=== PATIENT | female | born 1945 | race Caucasian/White ===

== ENCOUNTER 2022-02-27 12:10 | Inpatient (IN) | payer OTHER ==
[2022-02-26 20:20] VITALS: BP 131/56
[~2022-02-27] VITALS: Ht 160 cm; Wt 47.7 kg
--- NOTE | 2022-02-27 12:31 | NUR ---
BIB RA FROM HOME C/O HEADACHE/DIZZINESS SINCE SATURDAY S/P FALLING DOWN. PT REPORTS FELT DIZZY AND WEAK PRIOR TO FALLING AND EXPERIENCED A BLACKOUT. REPORTS "I NOTICE HAVING TROUBLE MAKING MY WORDS NOW." R KNEE ABRASION. AAOX4, BREATHING EVEN AND UNLABORED, LOWER FACIAL WEAKNESS. STONE BELT SANDER STRENGTH 5/5. NO ARM OR LEG DRIFT. ON MONITOR.
[2022-02-27 14:36] LABS: BASOPHILS # (AUTO) 0.1 K/uL (0.0-0.2); BASOPHILS % (AUTO) 1.2 % (0.0-2.0); EOSINOPHILS % (AUTO) 1.5 % (0.0-6.0); HEMATOCRIT 37 % (33-45); HEMOGLOBIN 12.1 g/dL (11.5-14.8); LYMPHOCYTES # (AUTO) 1.6 K/uL (0.8-4.8); LYMPHOCYTES % (AUTO) 25.5 % (20.0-44.0); MEAN CORPUSCULAR HGB CONC 33 g/dl (31.0-36.0); MEAN CORPUSCULAR VOLUME 88 fL (82-100); MONOCYTES # (AUTO) 0.3 K/uL (0.1-1.30); MONOCYTES % (AUTO) 5.3 % (2.0-12.0); NEUTROPHILS # (AUTO) 4.2 K/uL (1.8-8.9); NEUTROPHILS % (AUTO) 66.5 % (43.0-81.0); PLATELET COUNT (AUTO) 206 K/uL (150-450); RED BLOOD CELL COUNT(AUTO) 4.24 MIL/uL (4.0-5.2); WHITE BLOOD COUNT (AUTO) 6.3 K/uL (4.3-11.0)
[2022-02-27 14:55] LABS: CALCIUM, SERUM 8.8 mg/dL (8.5-10.1); CARBON DIOXIDE 27 mmol/L (21-32); CHLORIDE 107 mmol/L (98-107); CREATININE 0.8 mg/dL (0.6-1.3); GLUCOSE 124 mg/dL (74-106); POTASSIUM 4.2 mmol/L (3.5-5.1); SODIUM SERUM 139 mmol/L (136-145); UREA NITROGEN, BLOOD 12 mg/dL (7-18)
--- NOTE | 2022-02-27 14:59 | NUR ---
DR BARNHART AT BEDSIDE TALKING TO THE PATIENT
[2022-02-27 15:01] LABS: ALANINE AMINOTRANSFERASE 19 U/L (12-78); ALBUMIN 3.5 g/dL (3.4-5.0); ALKALINE PHOSPHATASE 106 U/L (46-116); ASPARTATE AMINOTRANSFERASE 16 U/L (15-37); BILIRUBIN,DIRECT 0.1 mg/dL (0.0-0.2); BILIRUBIN,TOTAL 0.4 mg/dL (0.2-1.0)
[2022-02-27] MEDS ORDERED: ASPIRIN 325 MG TABLET ONE (15:06)
--- NOTE | 2022-02-27 15:11 | NUR ---
CALLED REBECCA HOLMAN AND SET UP A CASE FOR THE PT
[2022-02-27] MEDS ORDERED: SERT25TA PO (15:30)
[2022-02-27] MEDS ORDERED: TRAZ-182 PO (15:30)
[2022-02-27] MEDS ORDERED: OMEP20CA15 PO (15:30)
[2022-02-27] MEDS ORDERED: FLUT16SP16 (15:30)
[2022-02-27] MEDS ORDERED: ATOR10TA PO (15:30)
[2022-02-27] MEDS ORDERED: CLON0.5T4 PO (15:30)
[2022-02-27] MEDS ORDERED: ASPIRIN 325 MG TABLET PO ONE (15:30)
--- NOTE | 2022-02-27 17:00 | NUR ---
CALLED NURSING SUP REGARDING PT BED
--- NOTE | 2022-02-27 17:15 | NUR ---
COVID SAMPLE OBTAINED AND SENT TO LAB
[2022-02-27] MEDS ORDERED: MAG HYDROX/AL HYDROX/SIMETH 30 ML UDC PO PRN (17:30)
[2022-02-27] MEDS ORDERED: MAGNESIUM HYDROXIDE 30 ML UDC PO PRN (17:30)
[2022-02-27] MEDS ORDERED: ZOLPIDEM TARTRATE 5 MG TABLET PO PRN (17:30)
[2022-02-27] MEDS ORDERED: Z GUARD REMEDY 4 OZ OINT TP PRN (17:30)
[2022-02-27] MEDS ORDERED: ONDANSETRON HCL/PF 4 MG/2 ML VIAL IVP PRN (17:30)
[2022-02-27] MEDS ORDERED: ACETAMINOPHEN 325 MG TABLET PO PRN (17:30)
[2022-02-27] MEDS ORDERED: HYDROCODONE/APAP 5/325MG TABLET PO PRN (17:30)
--- NOTE | 2022-02-27 19:57 | NUR ---
REPORT GIVEN TO RN
--- NOTE | 2022-02-27 20:12 | NUR ---
STAT CXR was error by this user. cancelled.
[2022-02-27 20:30] VITALS: BP 131/56
[2022-02-27] MEDS: IV 1/2NS 1000 ML 1,000 ML IV PRN (20:50)
[2022-02-27] MEDS ORDERED: clonazePAM 0.5 MG TABLET PO PRN (22:00)
--- NOTE | 2022-02-27 23:13 | NUR ---
Patient arrived to [facility] at 2019 accompanied by ER staff. A&Ox4, no signs of distress. Patient's only complain is head tenderness to back of head at this time, but states she has been feeling weaker than usual. Georgian speaking but speaks Irish well. Initial VS 131/56, HR 50, RR 20, temp 97.9, O2 97%. Pupils equal and reactive to light. Can move extremities evenly. Heart rate 50 slightly low but rhythm is regular. Lung sounds clear. Bowel sounds active x4. abdomen is soft and non-tender. Only skin issues is clean abrasion to R knee and scab on L great toe intact with surrounding skin WNL. Oriented patient to staff, unit protocols, call light, bed controls. Tele monitor applied promptly.
[2022-02-28] VITALS: BP 121/53
[2022-02-28 04:00] VITALS: BP_SYST 111; BP_SYST 114; BP_SYST 119; BP_DIAS 62; BP_DIAS 63; BP_DIAS 68
--- NOTE | 2022-02-28 04:14 | NUR ---
Orthostatic VS taken. Laying 111/63, HR 54, Sitting 119/62, HR 52, standing 114/68 HR 57
[2022-02-28 06:39] LABS: BASOPHILS % (AUTO) 0.7 % (0.0-2.0); EOSINOPHILS % (AUTO) 4.5 % (0.0-6.0); HEMATOCRIT 35 % (33-45); HEMOGLOBIN 11.5 g/dL (11.5-14.8); LYMPHOCYTES # (AUTO) 2.2 K/uL (0.8-4.8); LYMPHOCYTES % (AUTO) 38.1 % (20.0-44.0); MEAN CORPUSCULAR HGB CONC 33 g/dl (31.0-36.0); MEAN CORPUSCULAR VOLUME 87 fL (82-100); MONOCYTES # (AUTO) 0.5 K/uL (0.1-1.30); MONOCYTES % (AUTO) 8.8 % (2.0-12.0); NEUTROPHILS # (AUTO) 2.7 K/uL (1.8-8.9); NEUTROPHILS % (AUTO) 47.9 % (43.0-81.0); PLATELET COUNT (AUTO) 196 K/uL (150-450); RED BLOOD CELL COUNT(AUTO) 3.99 MIL/uL (4.0-5.2); WHITE BLOOD COUNT (AUTO) 5.6 K/uL (4.3-11.0)
--- NOTE | 2022-02-28 06:50 | NUR ---
Patient is A&Ox4 awake and sitting in bed awaiting breakfast at this time. Only c/o is minimal tenderness to back of head otherwise not dizzy when ambulating to bathroom with staff. Denies chest pain. Has been sinus bibi on the monitor around 50bpm with lowest of the night at 44bpm. LAC #20G still intact and patent 1/2 NS running at 75cc/hr. No signs of distress.
--- NOTE | 2022-02-28 07:45 | NUR ---
RN KEVIN NOTE Patient received in bed sleeping on room air maureen well no sign sob/distress noted.breathing even unlabored.iv access LAC #20G still intact and patent 1/2 NS running at 75cc/hr.bed in low/luck position. bed alarm on.continue to minotor.
[2022-02-28 07:47] LABS: CALCIUM, SERUM 8.7 mg/dL (8.5-10.1); CREATININE 0.7 mg/dL (0.6-1.3); MAGNESIUM 2.7 mg/dL (1.8-2.4); PHOSPHORUS 4.5 mg/dL (2.5-4.9)
[2022-02-28 08:00] VITALS: BP 104/55
[2022-02-28] MEDS: ASPIRIN EC 81 MG TABLET.DR PO SCH (08:31)
[2022-02-28] MEDS: SERTRALINE HCL 25 MG TABLET PO SCH (08:32)
[2022-02-28] MEDS: ATORVASTATIN 10 MG TABLET PO SCH (08:32)
[2022-02-28] MEDS: PANTOPRAZOLE 40 MG TABLET.DR PO SCH (08:32)
[2022-02-28] MEDS: FLUTICASONE PROPIONATE 16 GM BOTTLE NS SCH (08:42)
--- NOTE | 2022-02-28 10:19 | NUR ---
RN NOTE TROPONIN CRITICAL VALUE @ 55. TRENDING DOWN MD AWARE NNO
[2022-02-28 10:47] LABS: THYROID STIMULATING HORMONE 3.486 uIU/mL (0.358-3.74)
[2022-02-28 12:00] VITALS: BP 118/70
[2022-02-28 16:00] VITALS: BP 112/57
--- NOTE | 2022-02-28 18:30 | NUR ---
RN NOTE IV ACCESS NOTED TO BE DISLODGED, PRESSURE DRESSING APPLIED. NO BLEEDING NOTED. REINSERTED IV TO L WRIST # 22 GAUGE PATENT AND INTACT. RECEIVED CALL FROM REBECCA REYES DECLINED PATIENT, CJ AND NOTIFIED. WILL CONTINUE TO MONITOR
--- NOTE | 2022-02-28 18:40 | NUR ---
RN CLOSING NOTE PATIENT RESTING IN BED. PATIENT IS A/O X.4 PATIENT IS BREATHING EVENLY AND NONLABORED ON ROOM AIR. NO SIGNS OF DISTRESS NOTED. NO SIGNS OF PAIN NOTED. PATIENT NOTED WITH IV ACCESS TO L WRIST # 22 GAUGE. PATENT AND INTACT.PATIENT ON TELE MONITORING. DENIES CHEST PAIN ALL MEDICATIONS GIVEN ORDERED. SAFETY MEASURES IN PLACE BED LOW LOCKED AND CALL LIGHT WITHIN REACH WILL ENDORSE TO ONCOMING SHIFT
--- NOTE | 2022-02-28 19:30 | NUR ---
BRAND LEAD OPENING NOTES RECEIVED PATIENT LYING IN BED, HOB ELEVATED. 1 VISITOR PRESENT IN ROOM. PATIENT A/O X4. DENIES PAIN, DIZZINESS OR HEADACHE AT THIS TIME. TELE SINUS BRADYCARDIA 54. TOLERATING ROOM AIR WELL. HAS LEFT AC IV ACCESS #20G WITH 1/2 NS RUNNING AT 75 ML/HR, INTACT AND PATENT. SAFETY PRECAUTIONS IN PLACE. WILL CONTINUE PLAN OF CARE. Addendum: 03/01/22 at 0336 by May SAFIA IRAHETA RECEIVED PATIENT LYING IN BED, HOB ELEVATED. 1 VISITOR PRESENT IN ROOM. PATIENT A/O X4. DENIES PAIN, DIZZINESS OR HEADACHE AT THIS TIME. TELE SINUS BRADYCARDIA 54. TOLERATING ROOM AIR WELL. HAS LEFT WRIST IV ACCESS #20G WITH 1/2 NS RUNNING AT 75 ML/HR, INTACT AND PATENT. SAFETY PRECAUTIONS IN PLACE. WILL CONTINUE PLAN OF CARE.
[2022-02-28 20:00] VITALS: BP 101/64
[2022-03-01] VITALS: BP_SYST 106; BP_SYST 115; BP_DIAS 56; BP_DIAS 64
[2022-03-01] MEDS: IV 1/2NS 1000 ML 1,000 ML IV PRN (00:16)
[2022-03-01 04:00] VITALS: BP_SYST 108; BP_SYST 113; BP_SYST 118; BP_DIAS 62; BP_DIAS 63; BP_DIAS 73
--- NOTE | 2022-03-01 07:00 | NUR ---
ROUTE SAL[employer] TRAINEE CLOSING NOTES PATIENT LYING IN BED, EYES CLOSED. EASY TO AROUSE. A/O X4. NO APPARENT DISTRESS NOTED. TOLERATING ROOM AIR WELL. TELE MONITOR SHOWS SINUS BRADYCARDIA. HAS LEFT WRIST IV ACCESS #22G WITH 1/2 NS RUNNING AT 75 ML/HR. INTACT, PATENT AND INFUSING WELL. ALL NEEDS ATTENDED. KEPT WARM AND COMFORTABLE. SAFETY PRECAUTIONS IN PLACE: BED LOW AND LOCKED, SIDE RAILS UP X2, CALL LIGHT WITHIN REACH.
--- NOTE | 2022-03-01 07:49 | NUR ---
RN OPENING NOTES Patient seen comfortably lying in bed, no apparent distress noted, respirations even and unlabored, no SOB, denies any pain or discomfort at this time, no grimacing. Call light left within reach, safety precautions in place, brakes locked, side rails up X 2, will monitor closely for any changes.
[2022-03-01 08:00] VITALS: BP 118/59
[2022-03-01] MEDS: ATORVASTATIN 10 MG TABLET PO SCH (08:09)
[2022-03-01] MEDS: ASPIRIN EC 81 MG TABLET.DR PO SCH (08:09)
[2022-03-01] MEDS: SERTRALINE HCL 25 MG TABLET PO SCH (08:09)
[2022-03-01] MEDS: PANTOPRAZOLE 40 MG TABLET.DR PO SCH (08:09)
[2022-03-01] MEDS: FLUTICASONE PROPIONATE 16 GM BOTTLE NS SCH (11:09)
[2022-03-01 12:00] VITALS: BP 96/52
--- NOTE | 2022-03-01 14:55 | NUR ---
Patient to be discharged home today, no apparent distress noted, no shortness of breath, respirations even and unlabored, denies any pain or discomfort, no nausea, no vomiting, no dizziness, no palpitation, no chest pain. Patient made aware of the situation, she signed all discharge paper works, all belongings taken, inventory list signed by patient. Health teaching provided, verbalized understanding and gratitude. Reminded patient to schedule a follow up appointment at [place], patient asked RN to assist her to schedule an appointment. Patient to have a follow up with Dr. Brea Reyes on 03/13/21 at 8am at [facility]. Skin assessment done prior to discharge, skin intact, warm to touch, no pallor or cyanosis noted. Patient was noted to have right knee abrasion and left great toe scab, preferred not to have pictures taken, explained risks and benefits and hospital protocol thrice, still strongly refused, respected patients wishes. Peripheral IV line on left wrist removed prior to discharge, complete and intact, no excessive bleeding noted, site covered with dry dressing. Name wristband removed prior to discharge, surgical mask provided for patient to use. MOBILE BATTERY TECHNICIAN assisted patient going to the hospital parking lot via wheelchair, patient preferred not to use wheelchair and stated she can walk perfectly, patient able to ambulate with steady gait, left unit at 1455pm with daughter, stable condition, exit care documents handed to patient.
== END 2022-03-01 14:45 | disposition home or self-care (01) | DRG 282 ==
LOC: ER 12:16 → TRANSITION 17:28 → TELE 19:34
DX: R00.1 Bradycardia, unspecified (principal); I21.4 Non-ST elevation (NSTEMI) myocardial infarction; R55 Syncope and collapse; E78.5 Hyperlipidemia, unspecified; F32.A Depression, unspecified; K21.9 Gastro-esophageal reflux disease without esophagitis; Z20.822 Contact with and (suspected) exposure to COVID-19; E78.00 Pure hypercholesterolemia, unspecified; Z79.899 Other long term (current) drug therapy; S80.211A Abrasion, right knee, initial encounter; W19.XXXA Unspecified fall, initial encounter; Y92.9 Unspecified place or not applicable
CPT/HCPCS: 36415; 70450-TC; 71045-TC; 80048-TC; 80076-TC; 82962-TC; 83735-TC; 83880; 84100-TC; 84439-TC; 84443-TC; 84484-TC; 85025-TC; 85730-TC; 93307-TC; 97116-TC; 97530-TC; G0378; J3490